=== PATIENT | male | born 1975 | race Hispanic/Latino ===

== ENCOUNTER 2018-02-12 15:48 | Inpatient (IN) | payer MEDICARE ==
[~2018-02-12] VITALS: Ht 162.6 cm; Wt 100.7 kg
[~2018-02-12 15:48] MED LIST: COREG12.5 MG PO; LEVAQUIN250 MG PO; NEORAL25 MG PO; PREDNISONE5 MG PO; RAPAMUNE1 MG PO; SODIUM BICARBO650 MG PO; ULORIC40 MG PO; WELLBUTRIN75 MG PO
--- OUTSIDE RECORDS SUMMARY | 2018-02-12 15:50 | XMS REPORT ---
Author Author [facility] Address Unknown Phone Unavailable Care Team Providers Care Concrete Laborer Name Role Phone HUGO NYE Unavailable Unavailable Problems This patient has no known problems. Allergies, Adverse Reactions, Alerts This patient has no known allergies or adverse reactions. Medications This patient has no known medications. Results Test Description Test Time Test Comments Text Results Atomic Results Result Comments BLOOD CULTURE 2017-04-11 16:46:00 CULTURE (BEAKER) (test kdbe=9055) From Anaerobic Bottle Only Coagulase negative Staphylococcus GRAM STAIN RESULT (BEAKER) (test pvem=7458) From anaerobic bottle only: gram positive cocci in clusters BLOOD [id number] 13:28:00* Test Item Value Reference Range Comments CULTURE (BEAKER) (test wvlw=8144) No growth in 5 days SIROLIMUS [id number] 11:37:00* Test Item Value Reference Range Comments SIROLIMUS LEVEL BLOOD (BEAKER) (test okfm=426) 21.3 ng/mL 5.0-15.0 CYCLOSPORINE [id number] 11:32:00* Test Item Value Reference Range Comments CYCLOSPORINE BLOOD (BEAKER) (test ykmf=041) 60 ng/mL <400 CBC W/PLT COUNT & AUTO [id number] 06:49:00* Test Item Value Reference Range Comments WHITE BLOOD CELL COUNT (BEAKER) (test qxpu=058) 6.3 K/ L 4.0-10.0 RED BLOOD CELL COUNT (BEAKER) (test kdnu=185) 4.74 M/ L 4.20-5.80 HEMOGLOBIN (BEAKER) (test mcsf=956) 12.0 GM/DL 13.0-16.8 HEMATOCRIT (BEAKER) (test uiwz=390) 37.6 % 40.0-50.0 MEAN CORPUSCULAR VOLUME (BEAKER) (test dljp=383) 79.3 fL 82.0-98.0 MEAN CORPUSCULAR HEMOGLOBIN (BEAKER) (test djvl=795) 25.3 pg 27.0-33.0 MEAN CORPUSCULAR HEMOGLOBIN CONC (BEAKER) (test nbib=512) 31.9 GM/DL 32.0- 36.0 RED CELL DISTRIBUTION WIDTH (BEAKER) (test pqln=017) 13.9 % 10.3-14.2 PLATELET COUNT (BEAKER) (test uaty=110) 137 K/CU MM 150-430 MEAN PLATELET VOLUME (BEAKER) (test rjgc=738) 7.2 fL 6.5-10.5 NUCLEATED RED BLOOD CELLS (BEAKER) (test ebtu=943) 0 /100 WBC 0-0 NEUTROPHILS RELATIVE PERCENT (BEAKER) (test dbps=046) 64 % LYMPHOCYTES RELATIVE PERCENT (BEAKER) (test hpap=423) 21 % MONOCYTES RELATIVE PERCENT (BEAKER) (test misq=044) 12 % EOSINOPHILS RELATIVE PERCENT (BEAKER) (test drhx=860) 2 % BASOPHILS RELATIVE PERCENT (BEAKER) (test gwac=692) 0 % NEUTROPHILS ABSOLUTE COUNT (BEAKER) (test dsjg=571) 4.00 K/ L 1.80-8.00 LYMPHOCYTES ABSOLUTE COUNT (BEAKER) (test kdkk=334) 1.29 K/ L 1.48-4.50 MONOCYTES ABSOLUTE COUNT (BEAKER) (test obgv=404) 0.78 K/ L 0.00-1.30 EOSINOPHILS ABSOLUTE COUNT (BEAKER) (test zlvu=636) 0.15 K/ L 0.00-0.50 BASOPHILS ABSOLUTE COUNT (BEAKER) (test zfmn=899) 0.03 K/ L 0.00-0.20 0.00CREATINE KINASE (CK), TOTAL AND [id number] 06:28:00* Test Item Value Reference Range Comments CREATINE KINASE TOTAL (BEAKER) (test mmfr=164) 86 U/L 29-200 CREATINE KINASE-MB (BEAKER) (test iesr=365) 0.8 ng/mL 0.0-6.6 CREATINE KINASE-MB INDEX (BEAKER) (test ggeb=224) 0.9 % Effective 10/18/2014: CK-MB Reference Range ChangeNew: 0.0-6.6 Previous: 0.0- 4.9CK-MB Reference Range:<6.7 Normal6.7-10.0 Borderline>10.0 AbnormalTROPONIN [id number] 06:28:00* Test Item Value Reference Range Comments TROPONIN I (BEAKER) (test fgjc=607) 0.01 ng/mL 0.00-0.03 Effective 10/18/2014: Reference Range ChangeNew: 0.00-0.03 Previous 0.00- 0.15Troponin I (TnI) levels must be interpreted in the context of the presenting symptoms and the clinical findings. Elevated TnI levels indicate myocardial damage, but are not specific for ischemic heart disease. Elevated TnI levels are seen in patients with other cardiac conditions (including myocarditis and congestive heart failure), and slight TnI elevations occur in patients with other conditions, including sepsis, renal failure, acidosis, acute neurological disease, and persistent tachyarrhythmia.HEPATIC FUNCTION [id number] 06:22:00* Test Item Value Reference Range Comments TOTAL PROTEIN (BEAKER) (test rvjc=186) 7.5 gm/dL 6.0-8.3 ALBUMIN (BEAKER) (test ppiy=9371) 3.8 g/dL 3.5-5.0 BILIRUBIN TOTAL (BEAKER) (test cmtm=460) 0.6 mg/dL 0.2-1.2 BILIRUBIN DIRECT (BEAKER) (test hncb=588) 0.3 mg/dL 0.1-0.5 ALKALINE PHOSPHATASE (BEAKER) (test oulv=488) 75 U/L 40-150 AST (SGOT) (BEAKER) (test efgi=738) 17 U/L 5-34 ALT (SGPT) (BEAKER) (test wakk=277) 14 U/L 6-55 [id number] 06:22:00* Test Item Value Reference Range Comments AMYLASE (BEAKER) (test vhzg=327) 144 U/L 25-125 [id number] 06:22:00* Test Item Value Reference Range Comments LIPASE (BEAKER) (test wgyr=819) 18 U/L 8-78 BASIC METABOLIC [id number] 06:22:00* Test Item Value Reference Range Comments SODIUM (BEAKER) (test ppta=026) 139 meq/L 136-145 POTASSIUM (BEAKER) (test fzti=305) 4.2 meq/L 3.5-5.1 CHLORIDE (BEAKER) (test nvax=396) 106 meq/L 98-107 CO2 (BEAKER) (test dngs=117) 19 meq/L 22-29 BLOOD UREA NITROGEN (BEAKER) (test reax=459) 66 mg/dL 7-21 CREATININE (BEAKER) (test qlgp=471) 4.22 mg/dL 0.57-1.25 GLUCOSE RANDOM (BEAKER) (test peue=900) 94 mg/dL 70-105 CALCIUM (BEAKER) (test pqwt=211) 9.3 mg/dL 8.4-10.2 EGFR (BEAKER) (test ulpt=1396) 16 mL/min/1.73 sq m ESTIMATED GFR IS NOT ACCURATE CREATININE CLEARANCE IN PREDICTING GLOMERULAR FILTRATION RATE. ESTIMATED GFR IS NOT APPLICABLE FOR DIALYSIS PATIENTS. URINE [id number] 13:16:00* Test Item Value Reference Range Comments CULTURE (BEAKER) (test ipzl=8201) <10,000 col/mL skin kin CYCLOSPORINE [id number] 13:13:00* Test Item Value Reference Range Comments CYCLOSPORINE BLOOD (BEAKER) (test yqly=190) 55 ng/mL <400 SIROLIMUS [id number] 13:10:00* Test Item Value Reference Range Comments SIROLIMUS LEVEL BLOOD (BEAKER) (test ysfs=092) 24.3 ng/mL 5.0-15.0 RESPIRATORY PANEL [id number] 11:15:00* Test Item Value Reference Range Comments HUMAN METAPNEUMOVIRUS (BEAKER) (test fcag=5608) Not detected Not detected, Inconclusive RHINOVIRUS (BEAKER) (test jjjm=4842) Not detected Not detected, Inconclusive INFLUENZA A (BEAKER) (test hxyl=8552) Not detected Not detected, Inconclusive INFLUENZA A SUBTYPE H1 (BEAKER) (test vdhh=7352) Not detected Not detected, Inconclusive INFLUENZA A SUBTYPE H3 (BEAKER) (test tdzd=0453) Not detected Not detected, Inconclusive INFLUENZA A SUBTYPE H1-2009 (BEAKER) (test vwvo=1004) Not detected Not detected, Inconclusive INFLUENZA B (BEAKER) (test wkks=0947) Not detected Not detected, Inconclusive RESPIRATORY SYNCYTIAL VIRUS (BEAKER) (test qjzx=2425) Not detected Not detected, Inconclusive PARAINFLUENZA VIRUS 1 (BEAKER) (test vjmw=5700) Not detected Not detected, Inconclusive PARAINFLUENZA VIRUS 2 (BEAKER) (test ejky=6035) Not detected Not detected, Inconclusive PARAINFLUENZA VIRUS 3 (BEAKER) (test clij=3487) Not detected Not detected, Inconclusive PARAINFLUENZA VIRUS 4 (BEAKER) (test bfii=6927) Not detected Not detected, Inconclusive ADENOVIRUS (BEAKER) (test euaw=0938) Not detected Not detected, Inconclusive CORONAVIRUS 229E (BEAKER) (test exrs=0316) Not detected Not detected, Inconclusive CORONAVIRUS HKU1 (BEAKER) (test lwyy=6907) Not detected Not detected, Inconclusive CORONAVIRUS NL63 (BEAKER) (test jyqj=5749) Not detected Not detected, Inconclusive CORONAVIRUS OC43 (BEAKER) (test wqsy=4488) Not detected Not detected, Inconclusive BORDETELLA PERTUSSIS (BEAKER) (test shud=4601) Not detected Not detected, Inconclusive CHLAMYDOPHILA PNEUMONIAE (BEAKER) (test ykfy=4149) Not detected Not detected , Inconclusive MYCOPLASMA PNEUMONIAE (BEAKER) (test zycp=2625) Not detected Not detected, Inconclusive CBC W/PLT COUNT & AUTO [id number] 07:04:00* Test Item Value Reference Range Comments WHITE BLOOD CELL COUNT (BEAKER) (test kdva=347) 8.3 K/ L 4.0-10.0 RED BLOOD CELL COUNT (BEAKER) (test jqqk=591) 4.90 M/ L 4.20-5.80 HEMOGLOBIN (BEAKER) (test dvdk=915) 12.3 GM/DL 13.0-16.8 HEMATOCRIT (BEAKER) (test wuwe=091) 39.6 % 40.0-50.0 MEAN CORPUSCULAR VOLUME (BEAKER) (test eacy=374) 80.8 fL 82.0-98.0 MEAN CORPUSCULAR HEMOGLOBIN (BEAKER) (test decb=314) 25.0 pg 27.0-33.0 MEAN CORPUSCULAR HEMOGLOBIN CONC (BEAKER) (test vxhl=726) 31.0 GM/DL 32.0- 36.0 RED CELL DISTRIBUTION WIDTH (BEAKER) (test bwke=129) 14.2 % 10.3-14.2 PLATELET COUNT (BEAKER) (test fsma=452) 139 K/CU MM 150-430 MEAN PLATELET VOLUME (BEAKER) (test jqbh=860) 7.4 fL 6.5-10.5 NUCLEATED RED BLOOD CELLS (BEAKER) (test wipz=555) 0 /100 WBC 0-0 NEUTROPHILS RELATIVE PERCENT (BEAKER) (test nuym=805) 70 % LYMPHOCYTES RELATIVE PERCENT (BEAKER) (test wqlh=974) 16 % MONOCYTES RELATIVE PERCENT (BEAKER) (test eslq=758) 12 % EOSINOPHILS RELATIVE PERCENT (BEAKER) (test hgli=730) 2 % BASOPHILS RELATIVE PERCENT (BEAKER) (test wpvw=706) 0 % NEUTROPHILS ABSOLUTE COUNT (BEAKER) (test bjuv=092) 5.81 K/ L 1.80-8.00 LYMPHOCYTES ABSOLUTE COUNT (BEAKER) (test kdfr=851) 1.30 K/ L 1.48-4.50 MONOCYTES ABSOLUTE COUNT (BEAKER) (test kvay=630) 0.97 K/ L 0.00-1.30 EOSINOPHILS ABSOLUTE COUNT (BEAKER) (test gjqk=155) 0.16 K/ L 0.00-0.50 BASOPHILS ABSOLUTE COUNT (BEAKER) (test hsjg=413) 0.01 K/ L 0.00-0.20 0.00VANCOMYCIN LEVEL, [id number] 06:59:00* Test Item Value Reference Range Comments VANCOMYCIN RANDOM (BEAKER) (test zgqv=719) 10.0 ug/mL Reference Range: No [id number] 06:44:00* Test Item Value Reference Range Comments LIPASE (BEAKER) (test msvg=197) 12 U/L 8-78 BASIC METABOLIC [id number] 06:43:00* Test Item Value Reference Range Comments SODIUM (BEAKER) (test mxih=237) 141 meq/L 136-145 POTASSIUM (BEAKER) (test vnbs=136) 4.6 meq/L 3.5-5.1 CHLORIDE (BEAKER) (test gmcy=222) 106 meq/L 98-107 CO2 (BEAKER) (test jljq=001) 20 meq/L 22-29 BLOOD UREA NITROGEN (BEAKER) (test zdgi=451) 63 mg/dL 7-21 CREATININE (BEAKER) (test elws=007) 4.11 mg/dL 0.57-1.25 GLUCOSE RANDOM (BEAKER) (test ttdh=767) 88 mg/dL 70-105 CALCIUM (BEAKER) (test txip=167) 9.5 mg/dL 8.4-10.2 EGFR (BEAKER) (test gkdj=1830) 16 mL/min/1.73 sq m ESTIMATED GFR IS NOT ACCURATE CREATININE CLEARANCE IN PREDICTING GLOMERULAR FILTRATION RATE. ESTIMATED GFR IS NOT APPLICABLE FOR DIALYSIS PATIENTS. HEPATIC FUNCTION [id number] 06:43:00* Test Item Value Reference Range Comments TOTAL PROTEIN (BEAKER) (test meej=369) 7.7 gm/dL 6.0-8.3 ALBUMIN (BEAKER) (test qzvf=6142) 3.8 g/dL 3.5-5.0 BILIRUBIN TOTAL (BEAKER) (test jvzn=140) 1.0 mg/dL 0.2-1.2 BILIRUBIN DIRECT (BEAKER) (test ihmy=825) 0.5 mg/dL 0.1-0.5 ALKALINE PHOSPHATASE (BEAKER) (test iiqk=965) 77 U/L 40-150 AST (SGOT) (BEAKER) (test ctap=153) 11 U/L 5-34 ALT (SGPT) (BEAKER) (test mmnq=923) 11 U/L 6-55 [id number] 06:43:00* Test Item Value Reference Range Comments AMYLASE (BEAKER) (test igbk=719) 146 U/L 25-125 URINE [id number] 12:41:00* Test Item Value Reference Range Comments CULTURE (BEAKER) (test npyo=5117) No growth [id number] 10:42:00* Test Item Value Reference Range Comments POTASSIUM (BEAKER) (test kavz=408) 4.9 meq/L 3.5-5.1 CYCLOSPORINE [id number] 09:36:00* Test Item Value Reference Range Comments CYCLOSPORINE BLOOD (BEAKER) (test szdh=782) 54 ng/mL <400 CBC W/PLT COUNT & AUTO [id number] 07:03:00* Test Item Value Reference Range Comments WHITE BLOOD CELL COUNT (BEAKER) (test lnyb=877) 15.3 K/ L 4.0-10.0 RED BLOOD CELL COUNT (BEAKER) (test aflm=764) 5.02 M/ L 4.20-5.80 HEMOGLOBIN (BEAKER) (test ztnb=942) 12.3 GM/DL 13.0-16.8 HEMATOCRIT (BEAKER) (test ohue=087) 40.3 % 40.0-50.0 MEAN CORPUSCULAR VOLUME (BEAKER) (test vbek=809) 80.2 fL 82.0-98.0 MEAN CORPUSCULAR HEMOGLOBIN (BEAKER) (test kciy=196) 24.6 pg 27.0-33.0 MEAN CORPUSCULAR HEMOGLOBIN CONC (BEAKER) (test xwuc=132) 30.6 GM/DL 32.0- 36.0 RED CELL DISTRIBUTION WIDTH (BEAKER) (test xxpe=572) 14.4 % 10.3-14.2 PLATELET COUNT (BEAKER) (test llat=680) 146 K/CU MM 150-430 MEAN PLATELET VOLUME (BEAKER) (test elgz=323) 7.6 fL 6.5-10.5 NUCLEATED RED BLOOD CELLS (BEAKER) (test xdby=706) 0 /100 WBC 0-0 NEUTROPHILS RELATIVE PERCENT (BEAKER) (test llqy=121) 78 % LYMPHOCYTES RELATIVE PERCENT (BEAKER) (test tjkv=225) 11 % MONOCYTES RELATIVE PERCENT (BEAKER) (test krhk=480) 11 % EOSINOPHILS RELATIVE PERCENT (BEAKER) (test dboy=464) 1 % BASOPHILS RELATIVE PERCENT (BEAKER) (test ztuk=775) 0 % NEUTROPHILS ABSOLUTE COUNT (BEAKER) (test azoe=363) 11.80 K/ L 1.80-8.00 LYMPHOCYTES ABSOLUTE COUNT (BEAKER) (test lkhx=425) 1.64 K/ L 1.48-4.50 MONOCYTES ABSOLUTE COUNT (BEAKER) (test dntb=258) 1.64 K/ L 0.00-1.30 EOSINOPHILS ABSOLUTE COUNT (BEAKER) (test sfkt=423) 0.12 K/ L 0.00-0.50 BASOPHILS ABSOLUTE COUNT (BEAKER) (test cpun=478) 0.04 K/ L 0.00-0.20 0.00CREATINE KINASE (CK), TOTAL AND [id number] 06:21:00* Test Item Value Reference Range Comments CREATINE KINASE TOTAL (BEAKER) (test xcmn=207) 101 U/L 29-200 CREATINE KINASE-MB (BEAKER) (test spiq=997) 0.4 ng/mL 0.0-6.6 CREATINE KINASE-MB INDEX (BEAKER) (test onsn=560) 0.4 % Effective 10/18/2014: CK-MB Reference Range ChangeNew: 0.0-6.6 Previous: 0.0- 4.9CK-MB Reference Range:<6.7 Normal6.7-10.0 Borderline>10.0 AbnormalTROPONIN [id number] 06:21:00* Test Item Value Reference Range Comments TROPONIN I (BEAKER) (test oifi=732) 0.03 ng/mL 0.00-0.03 Effective 10/18/2014: Reference Range ChangeNew: 0.00-0.03 Previous 0.00- 0.15Troponin I (TnI) levels must be interpreted in the context of the presenting symptoms and the clinical findings. Elevated TnI levels indicate myocardial damage, but are not specific for ischemic heart disease. Elevated TnI levels are seen in patients with other cardiac conditions (including myocarditis and congestive heart failure), and slight TnI elevations occur in patients with other conditions, including sepsis, renal failure, acidosis, acute neurological disease, and persistent tachyarrhythmia.BASIC METABOLIC [id number] 06:16:00* Test Item Value Reference Range Comments SODIUM (BEAKER) (test mpbn=824) 138 meq/L 136-145 POTASSIUM (BEAKER) (test elho=207) 5.5 meq/L 3.5-5.1 Specimen slightly hemolyzed CHLORIDE (BEAKER) (test vnll=350) 107 meq/L 98-107 CO2 (BEAKER) (test tpiz=134) 18 meq/L 22-29 BLOOD UREA NITROGEN (BEAKER) (test enhu=538) 52 mg/dL 7-21 CREATININE (BEAKER) (test xead=857) 3.66 mg/dL 0.57-1.25 Specimen slightly hemolyzed GLUCOSE RANDOM (BEAKER) (test emdl=081) 86 mg/dL 70-105 CALCIUM (BEAKER) (test hchi=372) 9.1 mg/dL 8.4-10.2 EGFR (BEAKER) (test lpct=1063) 19 mL/min/1.73 sq m ESTIMATED GFR IS NOT ACCURATE CREATININE CLEARANCE IN PREDICTING GLOMERULAR FILTRATION RATE. ESTIMATED GFR IS NOT APPLICABLE FOR DIALYSIS PATIENTS. [id number] 06:14:00* Test Item Value Reference Range Comments MAGNESIUM (BEAKER) (test jrgx=356) 2.0 mg/dL 1.6-2.6 Specimen slightly hemolyzed [id number] 06:14:00* Test Item Value Reference Range Comments PHOSPHORUS (BEAKER) (test jhbv=951) 2.6 mg/dL 2.3-4.7 Specimen slightly hemolyzed LIPID [id number] 06:14:00* Test Item Value Reference Range Comments TRIGLYCERIDES (BEAKER) (test tjew=572) 139 mg/dL Specimen slightly hemolyzed CHOLESTEROL (BEAKER) (test vfzc=788) 107 mg/dL Specimen slightly hemolyzed HDL CHOLESTEROL (BEAKER) (test ajzc=838) 29 mg/dL LDL CHOLESTEROL CALCULATED (BEAKER) (test zrin=279) 50 mg/dL Triglyceride Reference Range: Low Risk <150 Borderline 150-199 High Risk 200-499 Very High Risk >=500Cholesterol Reference Range: Low Risk <200 Borderline 200-239 High Risk >240HDL Cholesterol Reference Range: Low Risk >=60 High Risk <40LDL Cholesterol Reference Range: Optimal <100 Near Optimal 100-129 Borderline 130-159 High 160-189 Very High >=190 HEPATIC FUNCTION [id number] 06:14:00* Test Item Value Reference Range Comments TOTAL PROTEIN (BEAKER) (test bejt=030) 7.5 gm/dL 6.0-8.3 Specimen slightly hemolyzed ALBUMIN (BEAKER) (test ddmf=3603) 3.7 g/dL 3.5-5.0 Specimen slightly hemolyzed BILIRUBIN TOTAL (BEAKER) (test yqoa=120) 1.5 mg/dL 0.2-1.2 Specimen slightly hemolyzed BILIRUBIN DIRECT (BEAKER) (test gcmn=076) 0.5 mg/dL 0.1-0.5 Specimen slightly hemolyzed ALKALINE PHOSPHATASE (BEAKER) (test psbh=660) 80 U/L 40-150 AST (SGOT) (BEAKER) (test hgns=539) 14 U/L 5-34 Specimen slightly hemolyzed ALT (SGPT) (BEAKER) (test osvd=703) 12 U/L 6-55 Specimen slightly hemolyzed [id number] 06:14:00* Test Item Value Reference Range Comments AMYLASE (BEAKER) (test xlki=222) 121 U/L 25-125 Specimen slightly hemolyzed [id number] 06:14:00* Test Item Value Reference Range Comments LIPASE (BEAKER) (test wtll=329) 7 U/L 8-78 B-TYPE NATRIURETIC FACTOR (BNP)2017-04-04 05:53:00* Test Item Value Reference Range Comments B-TYPE NATRIURETIC PEPTIDE (BEAKER) (test ztcj=393) 1495 pg/mL 0-100 URINALYSIS W/ [id number] 22:32:00* Test Item Value Reference Range Comments COLOR (BEAKER) (test pzua=857) Colorless CLARITY (BEAKER) (test zgvh=199) Clear SPECIFIC GRAVITY UA (BEAKER) (test hcjq=222) 1.004 1.001-1.035 PH UA (BEAKER) (test vfrz=491) 7.0 5.0-8.0 PROTEIN UA (BEAKER) (test dxwj=756) 50 mg/dL Negative GLUCOSE UA (BEAKER) (test blmx=015) Negative Negative KETONES UA (BEAKER) (test xdfm=938) Negative Negative BILIRUBIN UA (BEAKER) (test waot=912) Negative Negative BLOOD UA (BEAKER) (test ezed=057) Trace Negative NITRITE UA (BEAKER) (test ycpn=407) Negative Negative LEUKOCYTE ESTERASE UA (BEAKER) (test soav=737) Negative Negative UROBILINOGEN UA (BEAKER) (test clnn=420) 0.2 mg/dL 0.2-1.0 RBC UA (BEAKER) (test nrhp=008) 2 /HPF WBC UA (BEAKER) (test yixo=360) < /HPF SQUAMOUS EPITHELIAL (BEAKER) (test awpo=898) < /HPF SOURCE(BEAKER) (test izxp=5458) BLOOD GAS, [id number] 18:45:00* Test Item Value Reference Range Comments PH ARTERIAL (BEAKER) (test fjdy=397) 7.53 7.35-7.45 PCO2 ARTERIAL (BEAKER) (test kysb=070) 18 mmHg 35-45 PO2 ARTERIAL (BEAKER) (test kize=451) 70 mmHg 80-90 O2 SATURATION ARTERIAL (BEAKER) (test tzos=379) 95.8 % 96.0-97.0 HCO3 ARTERIAL (BEAKER) (test jgis=637) 15 mmol/L 21-29 BASE EXCESS ARTERIAL (BEAKER) (test ngke=138) -5.1 mmol/L -2.0-3.0 PATIENT TEMPERATURE (BEAKER) (test adbp=6749) 37.6 C FIO2 (BEAKER) (test xtbf=2400) 24.0 % CREATINE KINASE (CK), TOTAL AND [id number] 16:34:00* Test Item Value Reference Range Comments CREATINE KINASE TOTAL (BEAKER) (test ifag=854) 107 U/L 29-200 CREATINE KINASE-MB (BEAKER) (test uakh=139) 0.6 ng/mL 0.0-6.6 CREATINE KINASE-MB INDEX (BEAKER) (test hicg=484) 0.6 % Effective 10/18/2014: CK-MB Reference Range ChangeNew: 0.0-6.6 Previous: 0.0- 4.9CK-MB Reference Range:<6.7 Normal6.7-10.0 Borderline>10.0 AbnormalTROPONIN [id number] 16:34:00* Test Item Value Reference Range Comments TROPONIN I (BEAKER) (test tmwu=750) 0.02 ng/mL 0.00-0.03 Effective 10/18/2014: Reference Range ChangeNew: 0.00-0.03 Previous 0.00- 0.15Troponin I (TnI) levels must be interpreted in the context of the presenting symptoms and the clinical findings. Elevated TnI levels indicate myocardial damage, but are not specific for ischemic heart disease. Elevated TnI levels are seen in patients with other cardiac conditions (including myocarditis and congestive heart failure), and slight TnI elevations occur in patients with other conditions, including sepsis, renal failure, acidosis, acute neurological disease, and persistent tachyarrhythmia.[id number] 16: 28:00* Test Item Value Reference Range Comments AMYLASE (BEAKER) (test jfkz=020) 127 U/L 25-125 Specimen slightly hemolyzed [id number] 16:28:00* Test Item Value Reference Range Comments LIPASE (BEAKER) (test ktqi=735) < U/L 8-78 COMPREHENSIVE METABOLIC [id number] 16:28:00* Test Item Value Reference Range Comments TOTAL PROTEIN (BEAKER) (test sydi=884) 7.2 gm/dL 6.0-8.3 Specimen slightly hemolyzed ALBUMIN (BEAKER) (test bscp=3484) 3.8 g/dL 3.5-5.0 Specimen slightly hemolyzed ALKALINE PHOSPHATASE (BEAKER) (test hqjw=886) 81 U/L 40-150 BILIRUBIN TOTAL (BEAKER) (test ztdk=037) 1.0 mg/dL 0.2-1.2 Specimen slightly hemolyzed SODIUM (BEAKER) (test klsg=013) 139 meq/L 136-145 POTASSIUM (BEAKER) (test gqwd=799) 5.2 meq/L 3.5-5.1 Specimen slightly hemolyzed CHLORIDE (BEAKER) (test wtdl=711) 111 meq/L 98-107 CO2 (BEAKER) (test asdx=649) 19 meq/L 22-29 BLOOD UREA NITROGEN (BEAKER) (test pkkd=097) 46 mg/dL 7-21 CREATININE (BEAKER) (test efaz=084) 3.42 mg/dL 0.57-1.25 Specimen slightly hemolyzed GLUCOSE RANDOM (BEAKER) (test hvbc=342) 85 mg/dL 70-105 CALCIUM (BEAKER) (test lrxp=055) 9.4 mg/dL 8.4-10.2 AST (SGOT) (BEAKER) (test xtbj=048) 14 U/L 5-34 Specimen slightly hemolyzed ALT (SGPT) (BEAKER) (test epnn=228) 13 U/L 6-55 Specimen slightly hemolyzed EGFR (BEAKER) (test jkuc=6553) 20 mL/min/1.73 sq m ESTIMATED GFR IS NOT ACCURATE CREATININE CLEARANCE IN PREDICTING GLOMERULAR FILTRATION RATE. ESTIMATED GFR IS NOT APPLICABLE FOR DIALYSIS PATIENTS. URINALYSIS W/ [id number] 09:32:00* Test Item Value Reference Range Comments COLOR (BEAKER) (test aepm=076) Light Yellow CLARITY (BEAKER) (test ttrm=676) Clear SPECIFIC GRAVITY UA (BEAKER) (test cfue=829) 1.008 1.001-1.035 PH UA (BEAKER) (test vhea=501) 6.0 5.0-8.0 PROTEIN UA (BEAKER) (test ddsp=204) 100 mg/dL Negative GLUCOSE UA (BEAKER) (test epsb=903) Negative Negative KETONES UA (BEAKER) (test otwe=114) Negative Negative BILIRUBIN UA (BEAKER) (test gdmt=152) Negative Negative BLOOD UA (BEAKER) (test osqy=695) Small Negative NITRITE UA (BEAKER) (test psrk=974) Negative Negative LEUKOCYTE ESTERASE UA (BEAKER) (test ijrm=759) Negative Negative UROBILINOGEN UA (BEAKER) (test bjmh=343) 0.2 mg/dL 0.2-1.0 RBC UA (BEAKER) (test ggak=493) 6 /HPF WBC UA (BEAKER) (test voth=428) 1 /HPF SQUAMOUS EPITHELIAL (BEAKER) (test rkvm=210) < /HPF SOURCE(BEAKER) (test vtiw=7160) Urine, Clean Catch CREATINE KINASE (CK), TOTAL AND [id number] 09:30:00* Test Item Value Reference Range Comments CREATINE KINASE TOTAL (BEAKER) (test hwdr=495) 110 U/L 29-200 CREATINE KINASE-MB (BEAKER) (test xiol=278) 0.6 ng/mL 0.0-6.6 CREATINE KINASE-MB INDEX (BEAKER) (test mvrb=401) 0.5 % Effective 10/18/2014: CK-MB Reference Range ChangeNew: 0.0-6.6 Previous: 0.0- 4.9CK-MB Reference Range:<6.7 Normal6.7-10.0 Borderline>10.0 AbnormalTROPONIN [id number] 09:30:00* Test Item Value Reference Range Comments TROPONIN I (BEAKER) (test jilp=456) 0.02 ng/mL 0.00-0.03 Effective 10/18/2014: Reference Range ChangeNew: 0.00-0.03 Previous 0.00- 0.15Troponin I (TnI) levels must be interpreted in the context of the presenting symptoms and the clinical findings. Elevated TnI levels indicate myocardial damage, but are not specific for ischemic heart disease. Elevated TnI levels are seen in patients with other cardiac conditions (including myocarditis and congestive heart failure), and slight TnI elevations occur in patients with other conditions, including sepsis, renal failure, acidosis, acute neurological disease, and persistent tachyarrhythmia.BASIC METABOLIC [id number] 09:30:00* Test Item Value Reference Range Comments SODIUM (BEAKER) (test tfjk=324) 142 meq/L 136-145 POTASSIUM (BEAKER) (test vukc=377) 4.8 meq/L 3.5-5.1 CHLORIDE (BEAKER) (test ftyr=638) 113 meq/L 98-107 CO2 (BEAKER) (test rlbd=588) 18 meq/L 22-29 BLOOD UREA NITROGEN (BEAKER) (test umgl=441) 49 mg/dL 7-21 CREATININE (BEAKER) (test skjp=357) 3.58 mg/dL 0.57-1.25 GLUCOSE RANDOM (BEAKER) (test pjwl=481) 85 mg/dL 70-105 CALCIUM (BEAKER) (test pzaz=412) 9.3 mg/dL 8.4-10.2 EGFR (BEAKER) (test grbk=5032) 19 mL/min/1.73 sq m ESTIMATED GFR IS NOT ACCURATE CREATININE CLEARANCE IN PREDICTING GLOMERULAR FILTRATION RATE. ESTIMATED GFR IS NOT APPLICABLE FOR DIALYSIS PATIENTS. [id number] 09:24:00* Test Item Value Reference Range Comments MAGNESIUM (BEAKER) (test zdqw=693) 1.3 mg/dL 1.6-2.6 B-TYPE NATRIURETIC FACTOR (BNP)2017-04-03 08:55:00* Test Item Value Reference Range Comments B-TYPE NATRIURETIC PEPTIDE (BEAKER) (test jxfk=048) 1093 pg/mL 0-100 CBC W/PLT COUNT & AUTO [id number] 08:39:00* Test Item Value Reference Range Comments WHITE BLOOD CELL COUNT (BEAKER) (test qhyc=916) 15.0 K/ L 4.0-10.0 RED BLOOD CELL COUNT (BEAKER) (test nytd=769) 4.60 M/ L 4.20-5.80 HEMOGLOBIN (BEAKER) (test gikw=708) 11.6 GM/DL 13.0-16.8 HEMATOCRIT (BEAKER) (test ukzg=284) 36.7 % 40.0-50.0 MEAN CORPUSCULAR VOLUME (BEAKER) (test azgp=671) 79.8 fL 82.0-98.0 MEAN CORPUSCULAR HEMOGLOBIN (BEAKER) (test bkir=336) 25.2 pg 27.0-33.0 MEAN CORPUSCULAR HEMOGLOBIN CONC (BEAKER) (test qqnk=789) 31.6 GM/DL 32.0- 36.0 RED CELL DISTRIBUTION WIDTH (BEAKER) (test ozrd=294) 14.4 % 10.3-14.2 PLATELET COUNT (BEAKER) (test cuau=417) 143 K/CU MM 150-430 MEAN PLATELET VOLUME (BEAKER) (test sweh=760) 7.4 fL 6.5-10.5 NUCLEATED RED BLOOD CELLS (BEAKER) (test pijw=475) 0 /100 WBC 0-0 NEUTROPHILS RELATIVE PERCENT (BEAKER) (test fhkg=718) 78 % LYMPHOCYTES RELATIVE PERCENT (BEAKER) (test xvtb=895) 11 % MONOCYTES RELATIVE PERCENT (BEAKER) (test buvq=649) 10 % EOSINOPHILS RELATIVE PERCENT (BEAKER) (test rieb=394) 1 % BASOPHILS RELATIVE PERCENT (BEAKER) (test glty=256) 0 % NEUTROPHILS ABSOLUTE COUNT (BEAKER) (test mjvi=234) 11.70 K/ L 1.80-8.00 LYMPHOCYTES ABSOLUTE COUNT (BEAKER) (test qnvy=475) 1.68 K/ L 1.48-4.50 MONOCYTES ABSOLUTE COUNT (BEAKER) (test mkoh=974) 1.50 K/ L 0.00-1.30 EOSINOPHILS ABSOLUTE COUNT (BEAKER) (test pmnw=863) 0.10 K/ L 0.00-0.50 BASOPHILS ABSOLUTE COUNT (BEAKER) (test aovc=255) 0.04 K/ L 0.00-0.20 0.00
[2018-02-12] MEDS ORDERED: ACETAMINOPHEN 325 MG TAB PO ONE (16:15)
--- NOTE | 2018-02-12 16:43 | Diagnostic Imaging Report ---
PROCEDURE: X-RAY CHEST, TWO VIEWS COMPARISON: Patients [facility], DX, CHEST 2 VIEWS, 09/04/2016, 9:57. INDICATIONS: CHEST PAINS AND SHORTNESS OF BREATH FINDINGS: LUNGS: Right lower lobe airspace opacity is new compared to prior. PLEURA: No effusions or pneumothorax. HEART \T\ MEDIASTINUM: The heart is enlarged. BONES \T\ SOFT TISSUES: Wedging of several mid thoracic spine vertebral bodies. CONCLUSION: Right lower lobe airspace opacity. Erasmo Ndiaye D.O. Dictated by: Erasmo Ndiaye D.O. on 02/12/2018 at 16:42 Electronically approved by: Erasmo Ndiaye D.O. on 02/12/2018 at 16:42
[2018-02-12 16:56] LABS: BASOPHILS % 0.2 % (0.0-1.0); EOSINOPHILS # (AUTO) 0.1 (0.0-0.4); EOSINOPHILS % 0.7 % (0.0-6.0); HEMATOCRIT 36.8 % (38.2-49.6); HEMOGLOBIN 11.8 g/dL (14.0-18.0); LYMPHOCYTES # (AUTO) 1.3 (1.0-3.2); LYMPHOCYTES % 9.1 % (18.0-39.1); MEAN CORPUSCULAR HEMOGLOBIN 26.8 pg (28-32); MEAN CORPUSCULAR HGB CONC 32.1 g/dL (31-35); MEAN CORPUSCULAR VOLUME 83.4 fL (81-99); MONOCYTES # (AUTO) 1.2 (0.2-0.8); MONOCYTES % 8.5 % (4.4-11.3); NEUTROPHILS % 80.5 % (38.7-80.0); PLATELET COUNT 159 x10e3/uL (140-360); RED BLOOD COUNT 4.41 x10e6/uL (4.3-5.7); RED CELL DISTRIBUTION WIDTH 14.1 % (11.7-14.4)
[2018-02-12] MEDS ORDERED: AZITHROMYCIN 500MG/NS 250 ML 250 ML IV ONE (17:00)
[2018-02-12] MEDS ORDERED: SODIUM CHLORIDE 0.9% 1000ML 1,000 ML IV STA ×2 (17:00→18:05)
[2018-02-12] MEDS ORDERED: CEFTRIAXONE SOD 1 GM VIAL IV ONE (17:00)
[2018-02-12 17:05] LABS: INR 1.07; PROTHROMBIN TIME 13.1 seconds (11.9-14.5)
[2018-02-12 17:06] LABS: PARTIAL THROMBOPLASTIN TIME 31.4 seconds (23.8-35.5)
[2018-02-12] MEDS: AZITHROMYCIN 500MG/NS 250 ML 250 ML IV SCH (17:10)
[2018-02-12 17:13] LABS: STREPTOCOCCUS GRP A ANTIGEN NEGATIVE (NEGATIVE)
[2018-02-12] MEDS ORDERED: SODIUM CHLORIDE 0.9% 1000ML 1,000 ML IV SCH (17:14)
[2018-02-12] MEDS ORDERED: ACETAMINOPHEN 325 MG TAB PO PRN (17:15)
[2018-02-12] MEDS ORDERED: AZITHROMYCIN 500MG/SOD CHL 0.9% 250ML BAG IV SCH (17:15)
[2018-02-12 17:16] LABS: ALBUMIN 3.4 g/dL (3.5-5.0); ALBUMIN/GLOBULIN RATIO 0.9 (0.8-2.0); ANION GAP 11.4 mmol/L (8-16); CALCIUM 8.2 mg/dL (8.4-10.2); CREATININE, SERUM 2.29 mg/dL (0.72-1.25); MAGNESIUM 1.2 MG/DL (1.3-2.1); POTASSIUM 4.4 mmol/L (3.5-5.1)
[2018-02-12 17:22] LABS: INFLUENZAE A&B ANTIGEN (RAPID) NEGATIVE (NEGATIVE)
[2018-02-12] MEDS ORDERED: MAGNESIUM SULF 1GRAM/DEXTROSE 100 ML IV ONE (17:30)
[2018-02-12 17:32] LABS: BILIRUBIN,URINE NEGATIVE (NEGATIVE); CLARITY,URINE SL CLOUDY (CLEAR); COLOR,URINE YELLOW (YELLOW); KETONES,URINE NEGATIVE (NEGATIVE); LEUKOCYTE ESTERASE ,URINE NEGATIVE (NEGATIVE); NITRITE,URINE NEGATIVE (NEGATIVE); PROTEIN,URINE DIPSTICK 1+ (NEGATIVE); URINE UROBILINOGEN 0.2 mg/dL (0.2 - 1)
[2018-02-12 17:34] LABS: CREATINE KINASE MB 0.9 ng/mL (0-5.0); THYROID STIMULATING HORMONE 1.602 uIU/mL (0.350-4.940)
[2018-02-12 17:46] LABS: EPITHELIAL CELLS,URINE RARE /LPF; RBC,URINE 0-5 /HPF (0-5)
[2018-02-12 19:52] VITALS: BP 175/108
[2018-02-12 19:53] VITALS: BP 175/108
[2018-02-12 20:00] VITALS: BP 175/108
[2018-02-12] MEDS ORDERED: TYLENOL WITH C1 EACH PO (20:06)
[2018-02-12] MEDS ORDERED: CLONIDINE HCL 0.1 MG TAB PO PRN (20:30)
[2018-02-12] MEDS ORDERED: ACETAMINOPHEN/CODEINE 300MG - 30MG TAB PO PRN (20:30)
[2018-02-12] MEDS: SODIUM BICARBONATE 650 MG TAB PO SCH (21:00)
[2018-02-12] MEDS: CARVEDILOL 12.5 MG TAB PO SCH (21:01)
[2018-02-13] VITALS (9 sets, daily range): BP systolic 147–170; BP diastolic 74–86
[2018-02-13 02:01] LABS: CREATINE KINASE 153 IU/L (30-200)
--- NOTE | 2018-02-13 06:35 | Diagnostic Imaging Report ---
CHEST SINGLE (PORTABLE), 02/13/2018 5:00 AM Technique: CHEST SINGLE (PORTABLE) Comparison: 02/12/2018 Clinical history: Pneumonia Findings: Single portable view with overlying artifact. Impression: 1. Stable prominent cardiac silhouette. 2. Right infrahilar/lower lobe opacity most compatible with pneumonia. 3. No effusion or pneumothorax. Signed by: Dr Camila Nelson MD on 02/13/2018 6:32 AM
[2018-02-13 06:58] LABS: BASOPHILS % 0.2 % (0.0-1.0); EOSINOPHILS # (AUTO) 0.2 (0.0-0.4); EOSINOPHILS % 1.6 % (0.0-6.0); HEMATOCRIT 37.5 % (38.2-49.6); HEMOGLOBIN 12.1 g/dL (14.0-18.0); LYMPHOCYTES # (AUTO) 1.5 (1.0-3.2); LYMPHOCYTES % 14.8 % (18.0-39.1); MEAN CORPUSCULAR HEMOGLOBIN 26.7 pg (28-32); MEAN CORPUSCULAR HGB CONC 32.3 g/dL (31-35); MEAN CORPUSCULAR VOLUME 82.8 fL (81-99); MONOCYTES % 9.7 % (4.4-11.3); NEUTROPHILS # (AUTO) 7.3 (2.1-6.9); NEUTROPHILS % 72.7 % (38.7-80.0); PLATELET COUNT 148 x10e3/uL (140-360); RED BLOOD COUNT 4.53 x10e6/uL (4.3-5.7); RED CELL DISTRIBUTION WIDTH 14.3 % (11.7-14.4)
[2018-02-13 07:24] LABS: ANION GAP 12.8 mmol/L (8-16); CALCIUM 7.9 mg/dL (8.4-10.2); CREATININE, SERUM 2.39 mg/dL (0.72-1.25); POTASSIUM 3.8 mmol/L (3.5-5.1)
[2018-02-13 07:54] LABS: CREATINE KINASE MB 0.6 ng/mL (0-5.0)
[2018-02-13] MEDS: PREDNISONE 5 MG TAB PO SCH (08:40)
[2018-02-13] MEDS: SODIUM BICARBONATE 650 MG TAB PO SCH ×3 (08:40→21:36)
[2018-02-13] MEDS: FEBUXOSTAT 80 MG TAB PO SCH (08:40)
[2018-02-13] MEDS: CARVEDILOL 12.5 MG TAB PO SCH (08:40)
[2018-02-13] MEDS: BUPROPION HCL 75 MG TAB PO SCH (08:40)
--- NOTE | 2018-02-13 09:56 | Consultation ---
DATE OF CONSULTATION: February 13, 2018 HISTORY OF PRESENT ILLNESS: Mr. 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 Baseline serum creatinine around 2.1. He has been admitted with chills. He currently denies any cough, nausea, vomiting, fever, chills, chest pain, shortness of breath. He is very comfortable, lying supine in no apparent distress. He is maintained on Rapamune 1 mg daily, Neoral 25 mg p.o. daily, and prednisone 5 mg daily. PAST MEDICAL HISTORY: Significant for kidney transplant, chronic rejection. Underlying history of hypertension. Distal renal tubular acidosis. History of prior pericardiectomy. AV graft in the left arm. History of hyperuricemia. SOCIAL HISTORY: Does not smoke or drink. FAMILY HISTORY: Significant for hypertension. ALLERGIES: HE IS ALLERGIC TO AMOXICILLIN. CURRENT MEDICATIONS: Please see MAR for details. At the moment, he is on: 1. Sodium bicarbonate 1,300 mg p.o. t.i.d. 2. Rapamune 1 mg daily. 3. Prednisone 5 mg daily. 4. Uloric 40 mg p.o. daily. 5. Clonidine p.r.n. 6. Ceftriaxone 1 gram q.24. 7. Carvedilol 12.5 p.o. daily. 8. Atrovent and albuterol nebulizer. 9. He is currently receiving normal saline at 100 ml an hour. 10. Also on azithromycin. PHYSICAL EXAMINATION GENERAL: Awake, alert, lying supine in no apparent distress. VITALS: Blood pressure 149/81, pulse rate 94, afebrile. Oxygen saturation 96% on room air with respiratory rate of 14. He is febrile at 100 degrees Fahrenheit this morning. HEAD AND NECK: Corneas clear. Oral mucosa dry. Neck veins flat. LUNGS: Relatively clear. No rales or rhonchi. HEART: S1, S2 audible. ABDOMEN: Otherwise soft and nontender. LOWER EXTREMITY EXAMINATION: Shows no edema. IMPRESSION AND PLAN: Cadaveric renal transplant on immunosuppressive medications with chronic rejection and underlying hypertension. Chest x-ray shows right lower lobe infiltrate. Otherwise, he has low-grade fever on empiric antibiotics. Continue with IV fluids for today. Resume Rapamune, Neoral and prednisone. Blood pressure control. Job#: [id number] MH
[2018-02-13] MEDS: NEORAL 25 MG PO SCH (11:00)
--- NOTE | 2018-02-13 11:56 | History and Physical ---
CHIEF COMPLAINT: Shaking chills and shortness of breath. HISTORY OF PRESENT ILLNESS: This 42-year-old man presented to [facility] Emergency Room with sudden onset of cough, sore throat, fever, chills, and diffuse muscle aches. The patient also complained of slight shortness of breath. The patient has a known history of stage-4 chronic kidney disease as well as previous kidney transplantation. In the emergency room, the patient was found to have a B-type natriuretic peptide level of 369. The patient also was found to have pneumonia on chest x-ray, particularly in the right lower lobe. On admission, the patient's white blood cell count was 13,600 with 80% segmented neutrophils. The patient was admitted for further evaluation and treatment. REVIEW OF SYSTEMS GENERAL: Fever and chills for 1 day. Weight has been stable. Also complains of diffuse muscle aches for 1 day. HEENT: No headache. No visual changes. CARDIOVASCULAR/RESPIRATORY: Cough and shortness of breath for 1 days. No chest pain or tenderness. GI: No nausea, vomiting, or constipation. : Patient denies UTI symptoms. NEUROMUSCULAR: No limb weakness or numbness. ALLERGIES: AMOXICILLIN. HOME MEDICATIONS 1. Bumex 1 mg b.i.d. 2. Uloric 80 mg daily. 3. Carvedilol 25 mg b.i.d. 4. Ferrous sulfate 325 mg daily. 5. Sodium bicarbonate 1,300 mg b.i.d. 6. Testosterone cypionate 200 mg intramuscular daily. 7. Cyclosporine 25 mg b.i.d. 8. Prednisone 5 mg daily. 9. Vitamin D3 50,000 units once a week. 10. Tylenol No. 3 one t.i.d. p.r.n. pain. PAST MEDICAL HISTORY 1. Gouty arthritis. 2. Hyperlipidemia. 3. Hyperuricemia. 4. Obesity. 5. Stage-4 chronic kidney disease. 6. Hypertensive heart disease. 7. Anemia secondary to chronic kidney disease. 8. Vitamin D deficiency. 9. History of kidney transplantation twice (1992 and 2007). 10. Hypogonadism. SURGICAL HISTORY 1. Initial kidney transplantation in 1992. 2. Secondary kidney transplantation in 2007. 3. Left upper extremity AV fistula placement. 4. Bilateral nephrectomies. 5. Parathyroidectomy. FAMILY HISTORY: No family members with chronic kidney disease or hypertension. ALLERGIES: AMOXICILLIN. SOCIAL HISTORY: This man is single. He has no children. He lives with his parents. No history of tobacco use. He is employed as a cellular phone company salesman. PHYSICAL EXAMINATION GENERAL: He is awake, alert, fully oriented, in no acute distress. Very pleasant and cooperative with exam. He does not appear to be in any respiratory distress. VITAL SIGNS: Height is 5 feet 4 inches. Weight is 222 pounds. Calculated body mass index is 38. Blood pressure is 149/80, pulse in the 90s, respiratory rate 18, oxygen saturation 96% on room air. Temperature current is 100.0. INTEGUMENT: Skin is warm and dry. No pallor, jaundice or diaphoresis. HEENT: Anicteric sclerae with moist mucous membranes. NECK: Supple. No evidence of jugular venous distention. CARDIOVASCULAR: Distant heart sounds. Tachycardic rate, regular rhythm. Patient has an S3 and S4 gallop. LUNGS: Faint crackles in the right base. ABDOMEN: Obese. Benign. EXTREMITIES: Patient has trace to 1+ edema in the bilateral lower legs. NEUROLOGIC: Intact. DIAGNOSES 1. Sepsis secondary to right-sided pneumonia. 2. Stage-4 chronic kidney disease. 3. History of kidney transplantation (2007). 4. Hypertensive heart disease. 5. History of gout. 6. Chronic diastolic congestive heart failure. PLAN 1. Continue intravenous antibiotics. 2. Follow renal function and electrolytes. 3. Appreciate nephrology's input. 4. Order 2-D echocardiogram. 5. Will stop intravenous fluids. I spent 45 minutes in the care of this patient. Job#: [id number] GLENDA CORONADO
[2018-02-13] MEDS ORDERED: CYCLOSPORINE 25 MG CAP PO SCH (12:00)
[2018-02-13] MEDS ORDERED: PREDNISONE 5 MG TAB PO SCH (12:00)
[2018-02-13] MEDS: CEFTRIAXONE SOD 1 GM VIAL IV SCH (18:05)
[2018-02-13] MEDS: AZITHROMYCIN 500MG/NS 250 ML 250 ML IV SCH (18:05)
[2018-02-14] VITALS (7 sets, daily range): BP systolic 129–154; BP diastolic 55–94
[2018-02-14 07:33] LABS: BASOPHILS % 0.1 % (0.0-1.0); EOSINOPHILS # (AUTO) 0.1 (0.0-0.4); EOSINOPHILS % 1.7 % (0.0-6.0); HEMATOCRIT 35.8 % (38.2-49.6); HEMOGLOBIN 11.6 g/dL (14.0-18.0); LYMPHOCYTES # (AUTO) 1.6 (1.0-3.2); LYMPHOCYTES % 19.2 % (18.0-39.1); MEAN CORPUSCULAR HEMOGLOBIN 26.7 pg (28-32); MEAN CORPUSCULAR HGB CONC 32.4 g/dL (31-35); MEAN CORPUSCULAR VOLUME 82.5 fL (81-99); MONOCYTES # (AUTO) 0.9 (0.2-0.8); MONOCYTES % 10.7 % (4.4-11.3); NEUTROPHILS # (AUTO) 5.5 (2.1-6.9); NEUTROPHILS % 67.8 % (38.7-80.0); PLATELET COUNT 153 x10e3/uL (140-360); RED BLOOD COUNT 4.34 x10e6/uL (4.3-5.7); RED CELL DISTRIBUTION WIDTH 13.9 % (11.7-14.4)
[2018-02-14 07:54] LABS: ALBUMIN/GLOBULIN RATIO 0.8 (0.8-2.0); ANION GAP 14.1 mmol/L (8-16); CALCIUM 8.5 mg/dL (8.4-10.2); CREATININE, SERUM 2.68 mg/dL (0.72-1.25); POTASSIUM 3.1 mmol/L (3.5-5.1)
[2018-02-14] MEDS ORDERED: POTASSIUM CHLORIDE 20 MEQ TAB CR PO SCH (08:05)
[2018-02-14] MEDS: NEORAL 25 MG PO SCH (09:00)
[2018-02-14] MEDS: SODIUM BICARBONATE 650 MG TAB PO SCH ×3 (09:08→21:09)
[2018-02-14] MEDS: BUPROPION HCL 75 MG TAB PO SCH (09:08)
[2018-02-14] MEDS: FEBUXOSTAT 80 MG TAB PO SCH (09:08)
[2018-02-14] MEDS: CARVEDILOL 12.5 MG TAB PO SCH (09:08)
[2018-02-14] MEDS: PREDNISONE 5 MG TAB PO SCH (09:08)
[2018-02-14] MEDS: CEFTRIAXONE SOD 1 GM VIAL IV SCH (17:47)
[2018-02-14] MEDS: AZITHROMYCIN 500MG/NS 250 ML 250 ML IV SCH (17:47)
[2018-02-15] VITALS (9 sets, daily range): BP systolic 127–154; BP diastolic 58–86
[2018-02-15] MEDS: SODIUM BICARBONATE 650 MG TAB PO SCH ×3 (09:00→21:04)
[2018-02-15] MEDS: BUPROPION HCL 75 MG TAB PO SCH (09:00)
[2018-02-15] MEDS: FEBUXOSTAT 80 MG TAB PO SCH (09:00)
[2018-02-15] MEDS: NEORAL 25 MG PO SCH (09:00)
[2018-02-15] MEDS: PREDNISONE 5 MG TAB PO SCH (09:00)
[2018-02-15] MEDS: CARVEDILOL 12.5 MG TAB PO SCH (09:00)
[2018-02-15 10:37] LABS: HEMATOCRIT 41.5 % (38.2-49.6); HEMOGLOBIN 13.5 g/dL (14.0-18.0); MEAN CORPUSCULAR HEMOGLOBIN 26.5 pg (28-32); MEAN CORPUSCULAR HGB CONC 32.5 g/dL (31-35); MEAN CORPUSCULAR VOLUME 81.4 fL (81-99); PLATELET COUNT 206 x10e3/uL (140-360); RED CELL DISTRIBUTION WIDTH 13.9 % (11.7-14.4)
[2018-02-15 11:02] LABS: ANION GAP 19.1 mmol/L (8-16); CALCIUM 9.6 mg/dL (8.4-10.2); CREATININE, SERUM 3.02 mg/dL (0.72-1.25); POTASSIUM 4.1 mmol/L (3.5-5.1)
[2018-02-15 11:53] LABS: EOSINOPHILS % (MANUAL) 3 % (0-7); LYMPHOCYTES % (MANUAL) 12 % (19-48); MONOCYTES % (MANUAL) 8 % (3.4-9.0); NEUTROPHILS % (MANUAL) 76 % (40-74)
[2018-02-15] MEDS: CEFTRIAXONE SOD 1 GM VIAL IV SCH (17:04)
[2018-02-15] MEDS: AZITHROMYCIN 500MG/NS 250 ML 250 ML IV SCH (17:04)
[2018-02-15] MEDS: IPRATROPIUM BROMIDE 0.02% 2.5 ML NEB NEB SCH (19:30)
[2018-02-15] MEDS: ALBUTEROL SULF 0.083% NEB SOLN 3 ML NEB NEB SCH ×2 (19:30→23:05)
[2018-02-16] VITALS: BP 123/60
[2018-02-16] MEDS: ALBUTEROL SULF 0.083% NEB SOLN 3 ML NEB NEB SCH ×3 (02:15→11:00)
[2018-02-16] MEDS: IPRATROPIUM BROMIDE 0.02% 2.5 ML NEB NEB SCH ×3 (02:15→11:04)
[2018-02-16 04:00] VITALS: BP 123/59
--- NOTE | 2018-02-16 06:18 | Diagnostic Imaging Report ---
CHEST 2 VIEWS, 02/16/2018 12:20 PM Technique: CHEST 2 VIEWS Comparison: 02/13/2018 Clinical history: Pneumonia Findings: Single portable view with overlying artifact. Impression: 1. Stable prominent cardiac silhouette. 2. No consolidation. Previously seen right infrahilar opacity is not visualized on upright PA and lateral. 3. No effusion or pneumothorax. Signed by: Dr Camila Nelson MD on 02/16/2018 6:15 AM
[2018-02-16 07:15] VITALS: BP 125/61
[2018-02-16 07:16] LABS: BASOPHILS % 0.4 % (0.0-1.0); EOSINOPHILS # (AUTO) 0.3 (0.0-0.4); EOSINOPHILS % 3.5 % (0.0-6.0); HEMATOCRIT 36.8 % (38.2-49.6); HEMOGLOBIN 12.1 g/dL (14.0-18.0); LYMPHOCYTES # (AUTO) 1.9 (1.0-3.2); LYMPHOCYTES % 22.5 % (18.0-39.1); MEAN CORPUSCULAR HEMOGLOBIN 26.4 pg (28-32); MEAN CORPUSCULAR HGB CONC 32.9 g/dL (31-35); MEAN CORPUSCULAR VOLUME 80.3 fL (81-99); MONOCYTES # (AUTO) 0.9 (0.2-0.8); NEUTROPHILS # (AUTO) 5.4 (2.1-6.9); NEUTROPHILS % 63.1 % (38.7-80.0); PLATELET COUNT 180 x10e3/uL (140-360); RED BLOOD COUNT 4.58 x10e6/uL (4.3-5.7); RED CELL DISTRIBUTION WIDTH 13.5 % (11.7-14.4)
[2018-02-16 07:34] LABS: ANION GAP 16.7 mmol/L (8-16); CREATININE, SERUM 3.07 mg/dL (0.72-1.25); POTASSIUM 3.7 mmol/L (3.5-5.1)
[2018-02-16 07:41] VITALS: BP 123/58
[2018-02-16] MEDS: NEORAL 25 MG PO SCH (09:00)
[2018-02-16] MEDS: FEBUXOSTAT 80 MG TAB PO SCH (09:48)
[2018-02-16] MEDS: BUPROPION HCL 75 MG TAB PO SCH (09:48)
[2018-02-16] MEDS: CARVEDILOL 12.5 MG TAB PO SCH (09:48)
[2018-02-16] MEDS: SODIUM BICARBONATE 650 MG TAB PO SCH (09:48)
[2018-02-16] MEDS: PREDNISONE 5 MG TAB PO SCH (09:48)
--- NOTE | 2018-02-16 10:08 | Discharge Summary ---
ADMIT DIAGNOSES 1. Sepsis secondary to right-sided pneumonia. 2. Stage 4 chronic kidney disease. 3. History of kidney transplantation (1992 and 2007). 4. Hypertensive heart disease. 5. History of gout. 6. Chronic diastolic congestive heart failure. DISCHARGE DIAGNOSES 1. Sepsis secondary to right-sided pneumonia, resolved. 2. Right-sided pneumonia, resolving. 3. Stage 4 chronic kidney disease. 4. History of kidney transplantation twice (1992 and 2007). 5. Hypertensive heart disease. 6. History of gout. HOSPITAL COURSE: This is a 42-year-old man who was initially admitted to [facility] with the diagnosis of sepsis secondary to right-sided pneumonia. This gentleman has a history of stage 4 chronic kidney disease. In fact, he has a history of kidney transplantation twice, first in 1992 and second in 2007. The patient is being followed by a gridcap machine operator as an outpatient. During this hospitalization, the patient improved clinically with intravenous antibiotics, namely ceftriaxone and azithromycin. The patient was also seen by nephrology during this hospitalization, namely Dr. Villagran. The patient's white blood cell count on admission was 13,600 with 80% segmented neutrophils. On the day of discharge, the patient's white blood cell count was 8400 with 63% segmented neutrophils. During the hospitalization, the patient had blood and urine cultures drawn, which did not reveal any bacterial growth. The patient had a chest x-ray done on discharge, which revealed complete resolution of the right infrahilar opacity that was seen on admission. The patient's hospitalization was unremarkable. On discharge, the patient's BUN and creatinine was 64 and 3.07 respectively. The patient's calculated GFR on discharge was 23 mL a minute. DISCHARGE MEDICATIONS 1. Ceftin 250 mg b.i.d. for 7 more days. 2. Sodium bicarbonate 1300 mg t.i.d. 3. Prednisone 5 mg daily. 4. Uloric 40 mg a day. 5. Carvedilol 25 mg b.i.d. 6. Bupropion 75 mg daily. 7. Bumex 1 mg b.i.d. 8. Ferrous sulfate 325 mg daily. 9. Cyclosporine 25 mg b.i.d. 10. Vitamin D3 50,000 units once a week. 11. Tylenol No. 3 one t.i.d. p.r.n. pain. 12. Sirolimus 1 pill daily. FOLLOWUP INSTRUCTIONS: The patient was instructed to follow up with primary care physician, namely myself, Dr. Manish Eddy, within 2 weeks. MANISH EDDY MD Job#: [id number] SUKH CORONADO
[2018-02-16 11:45] VITALS: BP 133/68
[2018-02-16] MEDS ORDERED: CEFTIN250 MG/5 M PO (11:48)
== END 2018-02-16 13:08 | disposition home or self-care (01) | DRG 871 ==
LOC: ER 15:48 → ERHOLD 17:49 → MED/SURG3 17:51
PROVIDERS: ADMIT Internal Medicine; ATTEND Internal Medicine
DX: A41.9 Sepsis, unspecified organism (principal); J15.9 Unspecified bacterial pneumonia; I13.0 Hypertensive heart and chronic kidney disease with heart failure and stage 1 through stage 4 chronic kidney disease, or unspecified chronic kidney disease; I50.32 Chronic diastolic (congestive) heart failure; N18.4 Chronic kidney disease, stage 4 (severe); Z94.0 Kidney transplant status; D72.829 Elevated white blood cell count, unspecified; N28.9 Disorder of kidney and ureter, unspecified; M10.00 Idiopathic gout, unspecified site; E78.5 Hyperlipidemia, unspecified; E79.0 Hyperuricemia without signs of inflammatory arthritis and tophaceous disease; E66.9 Obesity, unspecified; Z79.899 Other long term (current) drug therapy; Z88.1 Allergy status to other antibiotic agents
CPT/HCPCS: 36415; 71045; 71046; 80048; 80053; 81001; 82550; 82553; 83518; 83735; 83880; 84443; 84484; 85007; 85025; 85027; 85610; 85730; 87040; 87070; 87086; 87400; 93005; 93306; 94640; 99284; J0456; J0696; J3475; J7030; J7512

== ENCOUNTER → 2018-10-08 | Outpatient (CLI) | payer MEDICARE ==
[~2018-10-08] MED LIST changes: +CEFTIN250 MG/5 M PO; +TYLENOL WITH C1 EACH PO
--- NOTE | 2018-10-08 13:38 | Diagnostic Imaging Report ---
EXAM: CT Abdomen and Pelvis WITHOUT contrast INDICATION: ^[id number] ^1230 ^CALCULUS OF KIDNEY / UTI COMPARISON: Renal ultrasound 09/03/2016 TECHNIQUE: Abdomen and pelvis were scanned utilizing a multidetector helical scanner from the lung base to the pubic symphysis without administration of IV contrast. Absence of intravenous contrast decreases sensitivity for detection of focal lesions and vascular pathology. Coronal and sagittal reformations were obtained. Routine protocol was performed. IV CONTRAST: None. ORAL CONTRAST: Water RADIATION DOSE: Total DLP: 704 mGy*cm Estimated effective dose: (DLP x 0.015 x size factor) mSv COMPLICATIONS: None FINDINGS: LINES and TUBES: None. LOWER THORAX: Subsegmental atelectasis and mild scarring in both lung bases. Small pericardial effusion with maximum thickness of 9 mm anterior to the right ventricle. HEPATOBILIARY: No focal hepatic lesions. No biliary ductal dilation. GALLBLADDER: No radio-opaque stones or sludge. No wall thickening. SPLEEN: No splenomegaly. PANCREAS: No focal masses or ductal dilatation. ADRENALS: No adrenal nodules KIDNEYS/URETERS: Right lower quadrant transplanted kidney is atrophic and calcified. Left lower quadrant transplanted kidney is normal in size and shape without hydronephrosis. [place] kidneys are not visualized. Mild inflammatory changes surrounding the left ureter, better seen on series 3, image 118. No cystic or solid mass lesions. No stones. GI TRACT: No abnormal distention, wall thickening, or evidence of bowel obstruction. Appendix is normal in morphology but in an unusual location anterior to the liver in the right upper quadrant on series 3, image 32. PELVIC ORGANS/BLADDER: Diffuse wall thickening of the urinary bladder is unchanged. No masses or calcified stones within the bladder. The prostate is normal in size. LYMPH NODES: No lymphadenopathy. VESSELS: Unremarkable. PERITONEUM / RETROPERITONEUM: No free air or fluid. BONES: Unremarkable. SOFT TISSUES: Unremarkable. IMPRESSION: 1. Left lower quadrant transplanted kidney appears unremarkable. Inflammatory changes surrounding the left ureter may be infectious or secondary to a recently passes stone. No calcified stones in the collecting system. 2. Atrophic right lower quadrant transplanted kidney, unchanged. 3. Diffuse wall thickening of the urinary bladder, unchanged. Signed by: Dr. Tatum Be M.D. on 10/08/2018 1:35 PM
== END ==
LOC: CT 11:38
PROVIDERS: ATTEND Internal Medicine
DX: N20.0 Calculus of kidney (principal); R10.9 Unspecified abdominal pain; N39.0 Urinary tract infection, site not specified
CPT/HCPCS: 74176

== ENCOUNTER → 2019-10-12 | Outpatient (CLI) | payer MEDICARE ==
--- NOTE | 2019-10-12 11:13 | Diagnostic Imaging Report ---
EXAMINATION: ANKLE 3 + VIEWS RIGHT INDICATION: Right ankle pain COMPARISON: None FINDINGS: Diffuse osteopenia. No acute fracture or dislocation. 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 There is diffuse soft tissue swelling. Calcific Achilles enthesopathy. Plantar fascia calcifications. Diffuse atherosclerotic arterial calcifications. 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 No acute displaced fracture. Signed by: Swathi Cintron MD on 10/12/2019 11:10 AM
== END ==
LOC: RAD 10:38
PROVIDERS: ATTEND Internal Medicine
DX: M25.571 Pain in right ankle and joints of right foot (principal)

== ENCOUNTER → 2021-01-23 | Outpatient (CLI) | payer MEDICARE | LOC: MRI 14:37 | PROVIDERS: ATTEND Internal Medicine | DX: S83.281A Other tear of lateral meniscus, current injury, right knee, initial encounter (principal) ==

== ENCOUNTER → 2021-02-06 | Day surgery (SDC) | payer MEDICARE ==
[2021-02-02 14:21] LABS: BASOPHILS % 0.2 % (0.0-1.0); EOSINOPHILS # (AUTO) 0.1 (0.0-0.4); EOSINOPHILS % 1.3 % (0.0-6.0); HEMATOCRIT 27.1 % (38.2-49.6); HEMOGLOBIN 8.2 g/dL (14.0-18.0); LYMPHOCYTES # (AUTO) 1.2 (1.0-3.2); LYMPHOCYTES % 13.3 % (18.0-39.1); MEAN CORPUSCULAR HEMOGLOBIN 24.1 pg (28-32); MEAN CORPUSCULAR HGB CONC 30.3 g/dL (31-35); MEAN CORPUSCULAR VOLUME 79.7 fL (81-99); MONOCYTES # (AUTO) 0.9 (0.2-0.8); MONOCYTES % 9.5 % (4.4-11.3); NEUTROPHILS # (AUTO) 6.8 (2.1-6.9); NEUTROPHILS % 75.1 % (38.7-80.0); PLATELET COUNT 146 x10e3/uL (140-360); RED CELL DISTRIBUTION WIDTH 14.1 % (11.7-14.4)
[2021-02-02 14:36] LABS: INR 0.97; PROTHROMBIN TIME 13.5 seconds (11.9-14.5)
[2021-02-02 14:37] LABS: PARTIAL THROMBOPLASTIN TIME 28.2 seconds (23.8-35.5)
[2021-02-02 14:44] LABS: ANION GAP 18.9 mmol/L (8-16); CREATININE, SERUM 4.89 mg/dL (0.72-1.25); POTASSIUM 4.9 mmol/L (3.5-5.1)
[~2021-02-06] MED LIST changes: +ACETAMINOPHEN/CODEINE 300MG - 30MG TAB ONE; +BUPIVACAINE HCL 0.5% INJ 30 ML VIAL INJ ONE; +CLINDAMYCIN PHOS 900MG/ 50ML 50 ML IV ONE; +FENTANYL CITRATE/PF 100MCG/2 ML INJ ONE; +HYDROCORTISONE SOD SUCCINATE 100 MG VIAL ONE; +LABETALOL HCL 20 ML ONE; +LIDOCAINE HCL 2% JELLY 5 ML TUBE ONE; +MIDAZOLAM HCL 2 MG/2 ML VIAL ONE; +MUPIROCIN 2% OINT 22 GM TUBE ONE; +ONDANSETRON HCL INJ 2MG/ML 2ML 2 MG/ML VIAL ONE; +PROPOFOL IV EMULSION 10 MG/ML 20 ML VIAL ONE; +SEVOFLURANE INHAL SOLN 250 ML PEN BTL ONE; +SODIUM CHLORIDE 0.9% 500ML 500 ML ONE
[2021-02-06 10:50] VITALS: BP 135/86
== END | disposition home or self-care (01) ==
LOC: OR 07:38
PROVIDERS: ATTEND Specialist
DX: S76.111A Strain of right quadriceps muscle, fascia and tendon, initial encounter (principal); M17.11 Unilateral primary osteoarthritis, right knee; Z94.0 Kidney transplant status; I10 Essential (primary) hypertension; D64.9 Anemia, unspecified; Z01.810 Encounter for preprocedural cardiovascular examination; Z01.812 Encounter for preprocedural laboratory examination; Z20.822 Contact with and (suspected) exposure to COVID-19
CPT/HCPCS: 27380; 36415 ×2; 80048; 84132; 85025; 85610; 85730; 93005; J1720; J2001; J2250; J2405; J2704; J3010; J3490; J7040; U0002

== ENCOUNTER 2021-04-23 13:46 | Outpatient (RCR) | payer MEDICARE ==
[~2021-04-23 13:46] MED LIST changes: -ACETAMINOPHEN/CODEINE 300MG - 30MG TAB ONE; -BUPIVACAINE HCL 0.5% INJ 30 ML VIAL INJ ONE; -CLINDAMYCIN PHOS 900MG/ 50ML 50 ML IV ONE; -FENTANYL CITRATE/PF 100MCG/2 ML INJ ONE; -HYDROCORTISONE SOD SUCCINATE 100 MG VIAL ONE; -LABETALOL HCL 20 ML ONE; -LIDOCAINE HCL 2% JELLY 5 ML TUBE ONE; -MIDAZOLAM HCL 2 MG/2 ML VIAL ONE; -MUPIROCIN 2% OINT 22 GM TUBE ONE; -ONDANSETRON HCL INJ 2MG/ML 2ML 2 MG/ML VIAL ONE; -PROPOFOL IV EMULSION 10 MG/ML 20 ML VIAL ONE; -SEVOFLURANE INHAL SOLN 250 ML PEN BTL ONE; -SODIUM CHLORIDE 0.9% 500ML 500 ML ONE
== END 2021-04-30 ==
LOC: PT 13:46
PROVIDERS: ATTEND Physician Assistant
DX: Z47.89 Encounter for other orthopedic aftercare (principal); S86.811D Strain of other muscle(s) and tendon(s) at lower leg level, right leg, subsequent encounter

== ENCOUNTER → 2021-05-09 | Outpatient (CLI) | payer MEDICARE ==
[~2021-05-09] MED LIST changes: +NORCO PO
== END ==
LOC: US 08:41
PROVIDERS: ATTEND Internal Medicine
DX: K52.9 Noninfective gastroenteritis and colitis, unspecified (principal); R10.10 Upper abdominal pain, unspecified
CPT/HCPCS: 76705

== ENCOUNTER → 2021-05-11 | Day surgery (SDC) | payer MEDICARE ==
[2021-05-10 12:59] LABS: BASOPHILS % 0.1 % (0.0-1.0); EOSINOPHILS % 0.3 % (0.0-6.0); HEMATOCRIT 25.3 % (38.2-49.6); LYMPHOCYTES # (AUTO) 0.8 (1.0-3.2); LYMPHOCYTES % 5.4 % (18.0-39.1); MEAN CORPUSCULAR HEMOGLOBIN 24.3 pg (28-32); MEAN CORPUSCULAR HGB CONC 31.6 g/dL (31-35); MEAN CORPUSCULAR VOLUME 76.9 fL (81-99); MONOCYTES # (AUTO) 1.3 (0.2-0.8); MONOCYTES % 8.9 % (4.4-11.3); NEUTROPHILS # (AUTO) 12.6 (2.1-6.9); NEUTROPHILS % 84.6 % (38.7-80.0); PLATELET COUNT 175 x10e3/uL (140-360); RED BLOOD COUNT 3.29 x10e6/uL (4.3-5.7); RED CELL DISTRIBUTION WIDTH 14.1 % (11.7-14.4)
[2021-05-10 13:23] LABS: ALBUMIN 2.9 g/dL (3.5-5.0); ALBUMIN/GLOBULIN RATIO 0.7 (0.8-2.0); CREATININE, SERUM 5.16 mg/dL (0.72-1.25)
[2021-05-10 13:28] LABS: CALCIUM 6.7 mg/dL (8.4-10.2)
[2021-05-10 13:31] LABS: INR 1.04; PROTHROMBIN TIME 14.2 seconds (11.9-14.5)
[~2021-05-11] MED LIST changes: +ACETAMINOPHEN 1000 MG/100 ML 100 ML IV ONE; +ATROPINE SULFATE 1 MG/ML VIAL ONE; +BUPIVACAINE 0.25% 30ML SDV ONE; +DEXAMETHASONE SOD PHOS INJ 4 MG/ML VIAL ONE; +FENTANYL CITRATE/PF 100MCG/2 ML INJ ONE; +HYDROCODONE/APAP 7.5MG-325MG 1 EA TAB ONE; +LIDOCAINE HCL 2% LOCAL INJ 5 ML SDV VIAL INJ ONE; +NEOSTIGMINE 1 MG/ML 10ML VIAL ONE; +ONDANSETRON HCL INJ 2MG/ML 2ML 2 MG/ML VIAL ONE; +POVIDONE IODINE 0.05% 0.05 % ML PO ONE; +PROPOFOL IV EMULSION 10 MG/ML 20 ML VIAL ONE; +ROCURONIUM BROMIDE 10 MG/ML 5ML VIAL IV ONE; +SEVOFLURANE INHAL SOLN 250 ML PEN BTL ONE
[2021-05-11 11:15] VITALS: BP 137/78
== END | disposition home or self-care (01) ==
LOC: OR 06:40
PROVIDERS: ATTEND Surgery
DX: K81.1 Chronic cholecystitis (principal); K76.0 Fatty (change of) liver, not elsewhere classified; D64.9 Anemia, unspecified; I12.0 Hypertensive chronic kidney disease with stage 5 chronic kidney disease or end stage renal disease; E11.22 Type 2 diabetes mellitus with diabetic chronic kidney disease; N18.6 End stage renal disease; Z88.0 Allergy status to penicillin; Z01.810 Encounter for preprocedural cardiovascular examination; Z01.812 Encounter for preprocedural laboratory examination; Z20.822 Contact with and (suspected) exposure to COVID-19; Z94.0 Kidney transplant status
CPT/HCPCS: 36415; 47562; 80053; 85025; 85610; 85730; 88304; 93005; C1766; J0131; J0461; J1100; J2001; J2405; J2704; J2710; J3010; U0002

== ENCOUNTER → 2021-10-16 | Outpatient (CLI) | payer MEDICARE ==
[~2021-10-16] MED LIST changes: -ACETAMINOPHEN 1000 MG/100 ML 100 ML IV ONE; -ATROPINE SULFATE 1 MG/ML VIAL ONE; -BUPIVACAINE 0.25% 30ML SDV ONE; -DEXAMETHASONE SOD PHOS INJ 4 MG/ML VIAL ONE; -FENTANYL CITRATE/PF 100MCG/2 ML INJ ONE; -HYDROCODONE/APAP 7.5MG-325MG 1 EA TAB ONE; -LIDOCAINE HCL 2% LOCAL INJ 5 ML SDV VIAL INJ ONE; -NEOSTIGMINE 1 MG/ML 10ML VIAL ONE; -ONDANSETRON HCL INJ 2MG/ML 2ML 2 MG/ML VIAL ONE; -POVIDONE IODINE 0.05% 0.05 % ML PO ONE; -PROPOFOL IV EMULSION 10 MG/ML 20 ML VIAL ONE; -ROCURONIUM BROMIDE 10 MG/ML 5ML VIAL IV ONE; -SEVOFLURANE INHAL SOLN 250 ML PEN BTL ONE
== END ==
LOC: RAD 11:45
PROVIDERS: ATTEND Internal Medicine
DX: J40 Bronchitis, not specified as acute or chronic (principal); J15.9 Unspecified bacterial pneumonia
CPT/HCPCS: 71046